=== PATIENT | female | born 1960 | race Two or more races ===

== ENCOUNTER 2018-12-23 06:47 | Day surgery (SDC) | payer OTHER ==
[2018-12-23] MEDS ORDERED: LIDOCAINE 4% SOLUTION 50 ML BTL (08:32)
[2018-12-23] MEDS ORDERED: FENTAnyl 50 MCG/ML VIAL (09:16)
[2018-12-23] MEDS ORDERED: MIDAZOLAM 1 MG/ML 2 ML INJ (09:16)
== END 2018-12-23 11:09 | disposition home or self-care (01) ==
LOC: GIL 06:47
DX: R19.5 Other fecal abnormalities (principal); K64.8 Other hemorrhoids; E11.9 Type 2 diabetes mellitus without complications; K22.2 Esophageal obstruction; K20.8 Other esophagitis; K29.90 Gastroduodenitis, unspecified, without bleeding
CPT/HCPCS: 43239; 82962; 88305; 88312